=== PATIENT | male | born 1970 | race Asian ===

== ENCOUNTER 2020-07-03 11:09 | Emergency (ER) | payer OTHER ==
[2020-07-03 11:45] VITALS: BMI 23.6
[2020-07-03] MEDS ORDERED: ASPIRIN 325 MG TABLET PO ONE (12:06)
[2020-07-03] MEDS ORDERED: NITROGLYCERIN SUBLINGUAL 1/150 0.4 MG TAB SL ONE (12:15)
[2020-07-03] MEDS ORDERED: ASPIRIN 325 MG ENTERIC COATED TABLET (FP) ONE (12:20)
[2020-07-03] MEDS ORDERED: NITROGLYCERIN SUBLINGUAL 1/150 0.4 MG TAB ONE (12:21)
[2020-07-03 12:39] LABS: BASO % 1.1 % (0-2.0); EOS % 3.3 % (0-4.5); HEMATOCRIT 41.1 % (35.4-49); HEMOGLOBIN 13.7 GM/dL (11.7-16.9); LYMPH % 28.1 % (8-40); MCHC 33.5 g/dl (32.0-35.9); MEAN CELL VOLUME 83.6 fl (80-96); MEAN PLT VOLUME 6.9 fl (7.5-11.1); MONO % 10.4 % (3.8-10.2); NEUT % 57.1 % (42.8-82.8); PLATELET COUNT 251 K/MM3 (134-434); RBC 4.91 M/mm3 (4.00-5.60); RDW 13.8 % (11.9-15.9); WHITE BLOOD COUNT 6.7 K/mm3 (4.0-10.0)
[2020-07-03 13:04] LABS: CHLORIDE 104 mmol/L (98-107); POTASSIUM 3.9 mmol/L (3.5-5.1); SODIUM 136 mmol/L (136-145)
[2020-07-03 13:06] LABS: ALBUMIN 4.3 g/dl (3.4-5.0); ANION GAP 3 MMOL/L (8-16); BLOOD UREA NITROGEN 13.4 mg/dL (7-18); CALCIUM 9.1 mg/dL (8.5-10.1); CO2 29 mmol/L (21-32); GLUCOSE,RANDOM 106 mg/dL (74-106)
[2020-07-03 13:10] LABS: CREATININE 1.1 mg/dL (0.55-1.3); SGOT/AST 30 U/L (15-37); SGPT/ALT 56 U/L (13-61)
[2020-07-03 13:11] LABS: BILIRUBIN,TOTAL 0.5 mg/dL (0.2-1); TOT PROT 8.1 g/dl (6.4-8.2)
[2020-07-03 13:13] LABS: ALK PHOS 63 U/L (45-117)
[2020-07-03 14:22] VITALS: TEMP 97.9
[2020-07-03 15:51] VITALS: BP 128/79; PULSE 64
== END 2020-07-03 18:43 | disposition home or self-care (01) ==
LOC: JER 11:09
DX: R07.2 Precordial pain (principal)
CPT/HCPCS: 36415; 71046-TC-FY; 80053; 82550; 82553; 84484; 85025; 93005; 93010; 99285-25